=== PATIENT | male | born 1975 | race Caucasian/White ===

== ENCOUNTER 2017-07-12 14:52 | Observation (INO) | END 2017-07-14 15:10 | disposition home or self-care (01) | DX: S67.194A Crushing injury of right ring finger, initial encounter (principal); S67.191A Crushing injury of left index finger, initial encounter; S62.614B Displaced fracture of proximal phalanx of right ring finger, initial encounter for open fracture; S61.201A Unspecified open wound of left index finger without damage to nail, initial encounter; X58.XXXA Exposure to other specified factors, initial encounter; S61.224A Laceration with foreign body of right ring finger without damage to nail, initial encounter | CPT/HCPCS: 11012; 11042; 26735; 73130; 82565; 84520; 85025; 88300; 90686; C1713; J1170; J2270; J3010; Z7500; Z7512; Z7610 ==

== ENCOUNTER 2017-08-16 14:31 | Day surgery (SDC) | END 2017-08-16 21:23 | disposition home or self-care (01) ==

== ENCOUNTER 2017-08-30 00:26 | Emergency (ER) | END 2017-08-30 07:31 | disposition home or self-care (01) ==